=== PATIENT | female | born 1995 | race Hispanic/Latino ===

== ENCOUNTER 2018-08-05 14:59 | Emergency (ER) | payer BC ==
[~2018-08-05] VITALS: Ht 165.1 cm; Wt 97.5 kg
== END 2018-08-05 15:35 | disposition left against medical advice (07) ==
LOC: ER 14:59
DX: S00.83XA Contusion of other part of head, initial encounter (principal); W18.09XA Striking against other object with subsequent fall, initial encounter; Y92.218 Other school as the place of occurrence of the external cause